=== PATIENT | male | born 1955 | race Asian ===

== ENCOUNTER 2016-07-18 11:51 | Emergency (ER) | payer SELFPAY ==
[~2016-07-18] VITALS: Ht 162.6 cm; Wt 88.5 kg
[2016-07-18 12:17] VITALS: Ht 162.6 cm; Wt 88.5 kg
[2016-07-18] MEDS ORDERED: IBUPROFEN 600 MG TAB PO STA (13:59)
[2016-07-18] MEDS ORDERED: DIAZEPAM 5 MG TAB PO ONE (14:00)
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
--- NOTE | 2016-07-18 15:03 | RADRPT ---
PROCEDURE: CT Chest without contrast. CLINICAL INDICATION: Injury, pain TECHNIQUE: CT of the chest was performed on a multi-detector scanner without IV contrast. Coronal and sagittal images were reformatted from the axial data set. One or more of the following dose re duction techniques were used: automated exposure control, adjustment of the mA and/or kV according to patient size, use of iterative reconstruction technique. CTDI = 15.04 mGy. DLP = 628.48 mGy-cm. COMPARISON: None FINDINGS: There is minimal bibasilar atelectasis. No acute infiltrate, pleural effusion, pulmonary edema or p neumothorax is identified. The central tracheobronchial tree is clear. No suspicious pulmonary nod ule or mass lesion is identified. The heart size is normal without pericardial effusion. Coronary arterial and aortic atherosclerotic calcifications are present. There is mild dilatation of the proximal descending thoracic aorta, me asuring 3.9 cm in maximal diameter. No mediastinal hematoma is identified. There is no mediastinal , hilar, axillary or supraclavicular lymphadenopathy. The liver is fatty infiltrated. Bilateral benign adrenal adenomas are incidentally noted. The surro unding osseous structures are remarkable for mild degenerative spondylosis of the spine. No acute f racture or dislocation is identified. No osteolytic or osteoblastic lesion is detected. IMPRESSION: 1. No evidence of acute traumatic injury is seen in the chest. 2. There is mild dilatation of the proximal descending thoracic aorta measuring 3.9 cm in maximal d iameter. Aortic atherosclerotic calcifications are present. 3. No mass, lymphadenopathy, or focal acute infiltrate is identified. 4. Hepatic steatosis is noted. RPTAT: TT .Wilmar Mcdonnell MD, Date Time Electronically viewed and signed by .Wilmar Mcdonnell MD, MD on 07/18/2016 15:03 .R/
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
[2016-07-18] MEDS ORDERED: DIAZ-90 PO (16:04)
[2016-07-18] MEDS ORDERED: ACET325T33 PO (16:04)
[2016-07-18] MEDS ORDERED: SILV20CR14 TOP (16:37)
[2016-07-18 16:39] VITALS: BP 132/65; PULSE 75; RESP 19; TEMP 98.2
== END 2016-07-18 16:40 | disposition home or self-care (01) ==
LOC: FTE 11:51
DX: I71.2 Thoracic aortic aneurysm, without rupture (principal); S69.92XA Unspecified injury of left wrist, hand and finger(s), initial encounter; S69.91XA Unspecified injury of right wrist, hand and finger(s), initial encounter; V49.40XA Driver injured in collision with unspecified motor vehicles in traffic accident, initial encounter
CPT/HCPCS: 71250; 73110; 93005